=== PATIENT | female | born 1950 | race Caucasian/White ===

== ENCOUNTER 2016-08-25 11:52 | Outpatient (CLI) | payer OTHER ==
--- NOTE | 2016-08-25 13:04 | DIAGNOSTIC IMAGING REPORT ---
PROCEDURE: XR CHEST 2 VIEW INDICATION: HEMOPTYSIS,ACUTE BRONCHITIS,DECUBITIS ULCER BUTTOCK TECHNIQUE: PA and lateral views. COMPARISON: Abdominal CT 05/08/2015 FINDINGS: Lungs are clear. Heart and mediastinum are normal. Scoliosis IMPRESSION: 1. No acute infiltrates.
== END 2016-08-25 23:00 ==
LOC: XR SRH 11:52
DX: R04.2 Hemoptysis (principal); J20.9 Acute bronchitis, unspecified; L89.309 Pressure ulcer of unspecified buttock, unspecified stage